=== PATIENT | male | born 1945 | race Caucasian/White ===

== ENCOUNTER 2021-12-17 14:20 | Emergency (ER) | payer OTHER ==
[2021-12-17 14:47] VITALS: TEMP 97.6; BMI 24.0
[2021-12-17] MEDS ORDERED: ACETAMINOPHEN 1000 MG/100 ML BAG IVPB ONE (15:23)
[2021-12-17] MEDS ORDERED: SODIUM CHLORIDE 1,000 ML IV STA (15:23)
[2021-12-17] MEDS ORDERED: LIDOCAINE 5% TOPICAL PATCH ONE (15:24)
[2021-12-17] MEDS ORDERED: LIDOCAINE 5% TOPICAL PATCH TP ONE (15:24)
[2021-12-17] MEDS ORDERED: ACETAMINOPHEN INJECTION 100 ML IVPB ONE (15:35)
[2021-12-17 16:07] LABS: BASO % 0.1 % (0-2.0); EOS % 0.8 % (0-4.5); HEMATOCRIT 37.3 % (35.4-49); HEMOGLOBIN 12.3 GM/dL (11.7-16.9); LYMPH % 28.3 % (8-40); MCHC 32.9 g/dl (32.0-35.9); MEAN PLT VOLUME 7.7 fl (7.5-11.1); MONO % 13.5 % (3.8-10.2); NEUT % 57.3 % (42.8-82.8); PLATELET COUNT 296 10^3/uL (134-434); RBC 4.72 M/mm3 (4.00-5.60); RDW 18.4 % (11.9-15.9); WHITE BLOOD COUNT 7.2 K/mm3 (4.0-10.0)
[2021-12-17 16:17] LABS: EPI CELLS 1 /uL (0-25.1); HYALINE CASTS 0 /uL (0-3.1); PH,URINE 5.5 (5.0-8.0); URINE APPEARANCE CLEAR; URINE BACTERIA 3 /uL (0-1359); URINE BILIRUBIN NEGATIVE (NEGATIVE); URINE COLOR YELLOW; URINE GLUCOSE (UA) NEGATIVE (NEGATIVE); URINE KETONE NEGATIVE (NEGATIVE); URINE LEUK ESTERASE NEGATIVE (NEGATIVE); URINE NITRITE NEGATIVE (NEGATIVE); URINE PROTEIN NEGATIVE (NEGATIVE); URINE RBC 5 /uL (0-23.9); URINE UROBILINOGEN 0.2 mg/dL (0.2-1.0); URINE WBC 0 /uL (0-25.8)
[2021-12-17 16:28] LABS: ALBUMIN 4.1 g/dl (3.4-5.0); CALCIUM 9.8 mg/dL (8.5-10.1)
[2021-12-17 16:29] LABS: BLOOD UREA NITROGEN 16.3 mg/dL (7-18)
[2021-12-17 16:32] LABS: CREATININE 1.1 mg/dL (0.55-1.3)
[2021-12-17 16:33] LABS: BILIRUBIN,TOTAL 0.6 mg/dL (0.2-1); TOT PROT 8.5 g/dl (6.4-8.2)
[2021-12-17] MEDS ORDERED: LIDOCAINE PATCH REMOVAL MC SCH (22:00)
[2021-12-17 22:18] VITALS: BP 128/68; PULSE 62
== END 2021-12-17 22:18 | disposition home or self-care (01) ==
LOC: JER 14:20
PROC: 3E033NZ Introduction of Analgesics, Hypnotics, Sedatives into Peripheral Vein, Percutaneous Approach (ICD-10-PCS; principal; 2021-12-17)
PROC: 3E0337Z Introduction of Electrolytic and Water Balance Substance into Peripheral Vein, Percutaneous Approach (ICD-10-PCS; 2021-12-17)
DX: M54.9 Dorsalgia, unspecified (principal)
CPT/HCPCS: 36415; 74176-TC; 76775-TC; 80053; 81003; 83690; 85025; 87086; 96361; 96374; 99285-25

== ENCOUNTER 2022-04-25 11:12 | Emergency (ER) | payer OTHER ==
[2022-04-25 11:32] VITALS: BMI 24.1
[2022-04-25] MEDS ORDERED: ACETAMINOPHEN 1000 MG/100 ML BAG IVPB ONE (12:48)
[2022-04-25] MEDS ORDERED: SODIUM CHLORIDE 0.9% 500 ML INFUS.BAG IV ONE (12:48)
[2022-04-25] MEDS ORDERED: ACETAMINOPHEN INJECTION 100 ML IVPB ONE (13:18)
[2022-04-25 14:22] LABS: BASO % 0.3 % (0-2.0); HEMATOCRIT 33.7 % (35.4-49); LYMPH % 11.4 % (8-40); MCH 26.5 pg (25.7-33.7); MCHC 32.5 g/dl (32.0-35.9); MEAN CELL VOLUME 81.6 fl (80-96); MEAN PLT VOLUME 8.3 fl (7.5-11.1); MONO % 12.9 % (3.8-10.2); NEUT % 75.4 % (42.8-82.8); PLATELET COUNT 341 10^3/uL (134-434); RBC 4.13 M/mm3 (4.00-5.60); RDW 16.8 % (11.9-15.9); WHITE BLOOD COUNT 14.5 K/mm3 (4.0-10.0)
[2022-04-25 14:36] LABS: ALBUMIN 3.4 g/dl (3.4-5.0); CALCIUM 9.4 mg/dL (8.5-10.1)
[2022-04-25 14:37] LABS: BLOOD UREA NITROGEN 12.9 mg/dL (7-18)
[2022-04-25 14:39] LABS: CREATININE 1.1 mg/dL (0.55-1.3)
[2022-04-25 14:41] LABS: BILIRUBIN,TOTAL 0.7 mg/dL (0.2-1); TOT PROT 7.8 g/dl (6.4-8.2)
[2022-04-25 15:31] LABS: EPI CELLS 4 /uL (0-25.1); HYALINE CASTS 0 /uL (0-3.1); PH,URINE 5.5 (5.0-8.0); URINE APPEARANCE CLEAR; URINE BACTERIA 124 /uL (0-1359); URINE BILIRUBIN NEGATIVE (NEGATIVE); URINE COLOR YELLOW; URINE GLUCOSE (UA) NEGATIVE (NEGATIVE); URINE KETONE NEGATIVE (NEGATIVE); URINE LEUK ESTERASE NEGATIVE (NEGATIVE); URINE NITRITE NEGATIVE (NEGATIVE); URINE PROTEIN 1+ (NEGATIVE); URINE RBC 15 /uL (0-23.9); URINE UROBILINOGEN 0.2 mg/dL (0.2-1.0); URINE WBC 18 /uL (0-25.8)
[2022-04-25] MEDS ORDERED: KETOROLAC TROMETHAMINE 15 MG/ML VIAL IVPUSH ONE (15:45)
[2022-04-25 18:42] VITALS: BP 102/74; PULSE 88; RESP 18; TEMP 100.1
== END 2022-04-25 18:40 | disposition home or self-care (01) ==
LOC: JER 11:12
PROC: 3E033GC Introduction of Other Therapeutic Substance into Peripheral Vein, Percutaneous Approach (ICD-10-PCS; principal; 2022-04-25)
DX: R10.84 Generalized abdominal pain (principal)
CPT/HCPCS: 36415; 74176-TC; 80053; 81003; 83690; 84484; 85025; 87086; 87186; 93005; 93010; 96374; 99285-25

== ENCOUNTER 2023-02-19 07:51 | Inpatient (IN) | payer OTHER ==
[2023-02-19 10:08] LABS: BASO % 0.1 % (0-2.0); EOS % 0.2 % (0-4.5); HEMATOCRIT 36.7 % (35.4-49); MCH 28.7 pg (25.7-33.7); MCHC 32.7 g/dl (32.0-35.9); MEAN CELL VOLUME 87.8 fl (80-96); MEAN PLT VOLUME 7.5 fl (7.5-11.1); MONO % 8.3 % (3.8-10.2); NEUT % 79.4 % (42.8-82.8); PLATELET COUNT 287 10^3/uL (134-434); RBC 4.18 M/mm3 (4.00-5.60); RDW 17.8 % (11.9-15.9); WHITE BLOOD COUNT 9.1 K/mm3 (4.0-10.0)
[2023-02-19 10:19] LABS: INR 1.25 (0.83-1.09); PROTHROMBIN TIME (PATIENT) 14.5 SEC (9.7-13.0)
[2023-02-19 10:21] LABS: ACTIVATED PTT 28.6 SECONDS (25.2-36.5)
[2023-02-19 10:34] LABS: POTASSIUM 4.2 mmol/L (3.5-5.1)
[2023-02-19 10:37] LABS: CALCIUM 9.3 mg/dL (8.5-10.1)
[2023-02-19 10:38] LABS: ALBUMIN 3.5 g/dl (3.4-5.0); BLOOD UREA NITROGEN 14.1 mg/dL (7-18); MAGNESIUM 1.6 mg/dL (1.8-2.4)
[2023-02-19 10:43] LABS: BILIRUBIN,TOTAL 0.9 mg/dL (0.2-1); TOT PROT 7.2 g/dl (6.4-8.2)
[2023-02-19 14:23] LABS: URINE APPEARANCE CLEAR; URINE BILIRUBIN NEGATIVE (NEGATIVE); URINE COLOR YELLOW; URINE GLUCOSE (UA) NEGATIVE (NEGATIVE); URINE KETONE TRACE (NEGATIVE); URINE LEUK ESTERASE NEGATIVE (NEGATIVE); URINE NITRITE NEGATIVE (NEGATIVE); URINE PROTEIN NEGATIVE (NEGATIVE); URINE UROBILINOGEN 0.2 mg/dL (0.2-1.0)
[2023-02-19] MEDS ORDERED: MAGNESIUM SULF 50% (8.12 MEQ/2 ML-1 GM VIAL) IVPB ONE (16:13)
[2023-02-19] MEDS ORDERED: MAGNESIUM 1GM/D5W - 1 GM/100 ML IVPB IVPB ONE (18:08)
[2023-02-19 19:02] LABS: CHOLESTEROL 162 mg/dL (50-200)
[2023-02-19 19:03] LABS: LDL CHOLESTEROL (ONLY SJRH) 95 mg/dL (5-100)
[2023-02-19 19:05] LABS: HDL CHOLESTEROL 57 mg/dL (40-60)
[2023-02-19] MEDS: APIXABAN 5 MG TABLET PO SCH (22:22)
[2023-02-20 08:22] LABS: BASO % 0.2 % (0-2.0); EOS % 0.8 % (0-4.5); HEMATOCRIT 42.5 % (35.4-49); HEMOGLOBIN 13.6 GM/dL (11.7-16.9); LYMPH % 18.7 % (8-40); MCH 28.7 pg (25.7-33.7); MCHC 32.1 g/dl (32.0-35.9); MEAN CELL VOLUME 89.3 fl (80-96); MEAN PLT VOLUME 8.8 fl (7.5-11.1); MONO % 9.6 % (3.8-10.2); NEUT % 70.7 % (42.8-82.8); PLATELET COUNT 250 10^3/uL (134-434); RBC 4.76 M/mm3 (4.00-5.60); RDW 17.7 % (11.9-15.9); WHITE BLOOD COUNT 8.5 K/mm3 (4.0-10.0)
[2023-02-20 08:34] LABS: POTASSIUM 4.2 mmol/L (3.5-5.1)
[2023-02-20 08:44] LABS: ALBUMIN 3.4 g/dl (3.4-5.0); BLOOD UREA NITROGEN 12.7 mg/dL (7-18); MAGNESIUM 1.8 mg/dL (1.8-2.4)
[2023-02-20 08:47] LABS: CREATININE 0.9 mg/dL (0.55-1.3); PHOSPHOROUS 3.5 mg/dL (2.5-4.9)
[2023-02-20 08:49] LABS: BILIRUBIN,TOTAL 1.2 mg/dL (0.2-1); TOT PROT 7.3 g/dl (6.4-8.2)
[2023-02-20] MEDS: APIXABAN 5 MG TABLET PO SCH ×2 (10:41→22:13)
[2023-02-20] MEDS ORDERED: amLODIPine BESYLATE 5 MG TABLET (FP) PO SCH (21:30)
[2023-02-21 08:52] LABS: BASO % 0.2 % (0-2.0); EOS % 0.9 % (0-4.5); HEMATOCRIT 38.3 % (35.4-49); LYMPH % 18.8 % (8-40); MCH 29.5 pg (25.7-33.7); MCHC 33.9 g/dl (32.0-35.9); MEAN CELL VOLUME 87.1 fl (80-96); MEAN PLT VOLUME 8.2 fl (7.5-11.1); MONO % 9.3 % (3.8-10.2); NEUT % 70.8 % (42.8-82.8); PLATELET COUNT 265 10^3/uL (134-434); RDW 17.8 % (11.9-15.9); WHITE BLOOD COUNT 8.2 K/mm3 (4.0-10.0)
[2023-02-21] MEDS: APIXABAN 5 MG TABLET PO SCH ×2 (09:17→21:46)
[2023-02-21 09:36] LABS: ALBUMIN 3.2 g/dl (3.4-5.0); CALCIUM 8.9 mg/dL (8.5-10.1)
[2023-02-21 09:37] LABS: BLOOD UREA NITROGEN 16.5 mg/dL (7-18)
[2023-02-21 09:38] LABS: MAGNESIUM 1.6 mg/dL (1.8-2.4)
[2023-02-21 09:39] LABS: PHOSPHOROUS 3.8 mg/dL (2.5-4.9)
[2023-02-21 09:59] LABS: TOT PROT 6.7 g/dl (6.4-8.2)
[2023-02-21] MEDS ORDERED: levETIRAcetam 500 MG/5 ML INJECTION VIAL IVPB ONE (11:26)
[2023-02-21] MEDS ORDERED: METOPROLOL TARTRATE 5 MG/5 ML VIAL ONE (12:46)
[2023-02-21] MEDS ORDERED: METOPROLOL TARTRATE 5 MG/5 ML VIAL IVPUSH ONE ×2 (12:53→18:37)
[2023-02-21] MEDS ORDERED: MAGNESIUM SULF 50% (8.12 MEQ/2 ML-1 GM VIAL) IVPB ONE (13:22)
[2023-02-21] MEDS ORDERED: SODIUM CHLORIDE 1,000 ML IV STA (13:35)
[2023-02-21 17:10] LABS: POTASSIUM 3.6 mmol/L (3.5-5.1)
[2023-02-21 17:12] LABS: ALBUMIN 3.2 g/dl (3.4-5.0); CALCIUM 8.7 mg/dL (8.5-10.1)
[2023-02-21 17:13] LABS: BLOOD UREA NITROGEN 15.5 mg/dL (7-18)
[2023-02-21 17:15] LABS: CREATININE 1.2 mg/dL (0.55-1.3)
[2023-02-21] MEDS: MUPIROCIN 2% TOPICAL OINTMENT FOR DECOLONIZATION NS SCH ×2 (17:15→22:30)
[2023-02-21 17:17] LABS: TOT PROT 6.6 g/dl (6.4-8.2)
[2023-02-21 17:23] LABS: BILIRUBIN,TOTAL 0.9 mg/dL (0.2-1); LACTIC ACID 2.3 mmol/L (0.4-2.0)
[2023-02-21] MEDS ORDERED: METOPROLOL TARTRATE 5 MG/5 ML VIAL IVPUSH PRN ×2 (18:45→18:59)
[2023-02-21] MEDS ORDERED: LORazepam 2 MG/ML SDV VIAL IVPUSH PRN (19:15)
[2023-02-21] MEDS: levETIRAcetam 500 MG/5 ML INJECTION VIAL IVPB SCH (21:45)
[2023-02-21] MEDS ORDERED: CHLORHEXIDINE GLUCONATE 4% CLEANSER FOR DECOLONIZATION TP SCH (22:00)
[2023-02-22 07:37] LABS: BASO % 0.2 % (0-2.0); EOS % 0.3 % (0-4.5); HEMATOCRIT 38.9 % (35.4-49); HEMOGLOBIN 12.5 GM/dL (11.7-16.9); LYMPH % 12.8 % (8-40); MCH 28.7 pg (25.7-33.7); MCHC 32.2 g/dl (32.0-35.9); MEAN PLT VOLUME 8.3 fl (7.5-11.1); MONO % 8.9 % (3.8-10.2); NEUT % 77.8 % (42.8-82.8); PLATELET COUNT 306 10^3/uL (134-434); RBC 4.37 M/mm3 (4.00-5.60); RDW 17.4 % (11.9-15.9); WHITE BLOOD COUNT 10.5 K/mm3 (4.0-10.0)
[2023-02-22 07:57] LABS: POTASSIUM 4.1 mmol/L (3.5-5.1)
[2023-02-22 08:00] LABS: CALCIUM 9.1 mg/dL (8.5-10.1)
[2023-02-22 08:01] LABS: ALBUMIN 3.5 g/dl (3.4-5.0); BLOOD UREA NITROGEN 13.8 mg/dL (7-18); MAGNESIUM 2.2 mg/dL (1.8-2.4)
[2023-02-22 08:04] LABS: PHOSPHOROUS 3.7 mg/dL (2.5-4.9)
[2023-02-22 08:05] LABS: TOT PROT 7.3 g/dl (6.4-8.2)
[2023-02-22] MEDS: levETIRAcetam 500 MG/5 ML INJECTION VIAL IVPB SCH ×2 (09:28→21:02)
[2023-02-22] MEDS: APIXABAN 5 MG TABLET PO SCH ×2 (09:30→21:02)
[2023-02-22] MEDS ORDERED: metoPROLOL SUCCINATE 25 MG TAB.SR.24H (FP) PO SCH ×2 (10:00→10:05)
[2023-02-22] MEDS ORDERED: METOPROLOL TARTRATE 5 MG/5 ML VIAL IVPUSH PRN (12:11)
[2023-02-22] MEDS: MUPIROCIN 2% TOPICAL OINTMENT FOR DECOLONIZATION NS SCH (13:09)
[2023-02-22] MEDS: LORazepam 2 MG/ML SDV VIAL IVPUSH PRN (23:44)
[2023-02-23 08:49] LABS: BASO % 0.2 % (0-2.0); EOS % 0.6 % (0-4.5); HEMATOCRIT 41.3 % (35.4-49); HEMOGLOBIN 13.1 GM/dL (11.7-16.9); LYMPH % 15.1 % (8-40); MCH 28.5 pg (25.7-33.7); MCHC 31.6 g/dl (32.0-35.9); MEAN CELL VOLUME 90.2 fl (80-96); MEAN PLT VOLUME 8.9 fl (7.5-11.1); MONO % 9.1 % (3.8-10.2); PLATELET COUNT 260 10^3/uL (134-434); RBC 4.58 M/mm3 (4.00-5.60); WHITE BLOOD COUNT 9.5 K/mm3 (4.0-10.0)
[2023-02-23 09:01] LABS: POTASSIUM 3.9 mmol/L (3.5-5.1)
[2023-02-23 09:03] LABS: CALCIUM 9.4 mg/dL (8.5-10.1)
[2023-02-23 09:05] LABS: ALBUMIN 3.4 g/dl (3.4-5.0); BLOOD UREA NITROGEN 16.7 mg/dL (7-18)
[2023-02-23 09:08] LABS: BILIRUBIN,TOTAL 0.6 mg/dL (0.2-1); PHOSPHOROUS 3.8 mg/dL (2.5-4.9); TOT PROT 7.3 g/dl (6.4-8.2)
[2023-02-23] MEDS: levETIRAcetam 500 MG/5 ML INJECTION VIAL IVPB SCH ×2 (11:07→22:12)
[2023-02-23] MEDS: metoPROLOL SUCCINATE 25 MG TAB.SR.24H (FP) PO SCH (11:07)
[2023-02-23] MEDS: APIXABAN 5 MG TABLET PO SCH ×2 (11:08→22:13)
[2023-02-23] MEDS: D5-1/2NS+10 MEQ KCL - 10 MEQ/1,000 ML INFUS.BAG IV SCH (20:01)
[2023-02-23] MEDS: LORazepam 2 MG/ML SDV VIAL IVPUSH PRN (22:11)
[2023-02-24] MEDS: QUEtiapine FUMARATE 25 MG TABLET PO SCH ×2 (06:40→22:18)
[2023-02-24 07:50] LABS: BASO % 0.2 % (0-2.0); EOS % 1.6 % (0-4.5); HEMATOCRIT 37.6 % (35.4-49); HEMOGLOBIN 12.1 GM/dL (11.7-16.9); LYMPH % 18.9 % (8-40); MCH 28.6 pg (25.7-33.7); MCHC 32.3 g/dl (32.0-35.9); MEAN CELL VOLUME 88.6 fl (80-96); MEAN PLT VOLUME 8.6 fl (7.5-11.1); MONO % 12.2 % (3.8-10.2); NEUT % 67.1 % (42.8-82.8); PLATELET COUNT 304 10^3/uL (134-434); RBC 4.24 M/mm3 (4.00-5.60); RDW 17.7 % (11.9-15.9); WHITE BLOOD COUNT 8.2 K/mm3 (4.0-10.0)
[2023-02-24 08:12] LABS: ALBUMIN 3.1 g/dl (3.4-5.0); BLOOD UREA NITROGEN 13.7 mg/dL (7-18); MAGNESIUM 1.6 mg/dL (1.8-2.4)
[2023-02-24 08:15] LABS: CREATININE 0.9 mg/dL (0.55-1.3); PHOSPHOROUS 3.7 mg/dL (2.5-4.9)
[2023-02-24 08:16] LABS: BILIRUBIN,TOTAL 0.7 mg/dL (0.2-1); TOT PROT 6.6 g/dl (6.4-8.2)
[2023-02-24] MEDS ORDERED: MAGNESIUM SULF 50% (8.12 MEQ/2 ML-1 GM VIAL) IVPB ONE (10:30)
[2023-02-24] MEDS: levETIRAcetam 500 MG/5 ML INJECTION VIAL IVPB SCH ×2 (10:36→22:19)
[2023-02-24] MEDS: APIXABAN 5 MG TABLET PO SCH ×2 (10:37→22:18)
[2023-02-24] MEDS: metoPROLOL SUCCINATE 25 MG TAB.SR.24H (FP) PO SCH (10:37)
[2023-02-24] MEDS: D5-1/2NS+10 MEQ KCL - 10 MEQ/1,000 ML INFUS.BAG IV SCH (10:38)
[2023-02-24 11:01] LABS: EPI CELLS 6 /uL (0-25.1); HYALINE CASTS 2 /uL (0-3.1); PH,URINE 5.5 (5.0-8.0); URINE APPEARANCE CLOUDY; URINE BACTERIA 7251 /uL (0-1359); URINE BILIRUBIN NEGATIVE (NEGATIVE); URINE COLOR YELLOW; URINE GLUCOSE (UA) NEGATIVE (NEGATIVE); URINE KETONE TRACE (NEGATIVE); URINE LEUK ESTERASE NEGATIVE (NEGATIVE); URINE NITRITE POSITIVE (NEGATIVE); URINE PROTEIN NEGATIVE (NEGATIVE); URINE RBC 14 /uL (0-23.9); URINE UROBILINOGEN 0.2 mg/dL (0.2-1.0); URINE WBC 9 /uL (0-25.8)
[2023-02-24] MEDS: SODIUM CHLORIDE 1,000 ML IV SCH ×2 (13:03→13:30)
[2023-02-24] MEDS: CEFTRIAXONE 1 GM in DEXTROSE 5%-WATER - 50 ML IVPB SCH (13:16)
[2023-02-25 09:11] LABS: BASO % 0.3 % (0-2.0); EOS % 1.4 % (0-4.5); HEMATOCRIT 36.3 % (35.4-49); HEMOGLOBIN 11.9 GM/dL (11.7-16.9); LYMPH % 18.7 % (8-40); MCH 29.1 pg (25.7-33.7); MCHC 32.7 g/dl (32.0-35.9); MONO % 10.7 % (3.8-10.2); NEUT % 68.9 % (42.8-82.8); PLATELET COUNT 301 10^3/uL (134-434); RBC 4.08 M/mm3 (4.00-5.60); RDW 17.5 % (11.9-15.9); WHITE BLOOD COUNT 8.7 K/mm3 (4.0-10.0)
[2023-02-25 09:24] LABS: POTASSIUM 4.2 mmol/L (3.5-5.1)
[2023-02-25] MEDS: APIXABAN 5 MG TABLET PO SCH ×2 (09:38→21:36)
[2023-02-25] MEDS: metoPROLOL SUCCINATE 25 MG TAB.SR.24H (FP) PO SCH (09:38)
[2023-02-25] MEDS: levETIRAcetam 500 MG/5 ML INJECTION VIAL IVPB SCH ×2 (09:39→21:36)
[2023-02-25] MEDS: CEFTRIAXONE 1 GM in DEXTROSE 5%-WATER - 50 ML IVPB SCH (09:39)
[2023-02-25 09:51] LABS: PHOSPHOROUS 3.2 mg/dL (2.5-4.9)
[2023-02-25 09:52] LABS: BILIRUBIN,TOTAL 0.6 mg/dL (0.2-1); CREATININE 0.9 mg/dL (0.55-1.3); TOT PROT 6.6 g/dl (6.4-8.2)
[2023-02-25 09:56] LABS: BLOOD UREA NITROGEN 12.7 mg/dL (7-18); CALCIUM 9.1 mg/dL (8.5-10.1)
[2023-02-25 10:00] LABS: MAGNESIUM 1.6 mg/dL (1.8-2.4)
[2023-02-25] MEDS: SODIUM CHLORIDE 1,000 ML IV SCH (19:05)
[2023-02-25] MEDS: QUEtiapine FUMARATE 25 MG TABLET PO SCH (21:36)
[2023-02-26 08:20] LABS: BASO % 0.3 % (0-2.0); EOS % 1.2 % (0-4.5); HEMATOCRIT 37.1 % (35.4-49); HEMOGLOBIN 12.5 GM/dL (11.7-16.9); LYMPH % 16.2 % (8-40); MCH 29.1 pg (25.7-33.7); MCHC 33.6 g/dl (32.0-35.9); MEAN CELL VOLUME 86.6 fl (80-96); MEAN PLT VOLUME 7.7 fl (7.5-11.1); MONO % 9.9 % (3.8-10.2); NEUT % 72.4 % (42.8-82.8); PLATELET COUNT 305 10^3/uL (134-434); RBC 4.28 M/mm3 (4.00-5.60); RDW 17.4 % (11.9-15.9); WHITE BLOOD COUNT 8.4 K/mm3 (4.0-10.0)
[2023-02-26 08:34] LABS: POTASSIUM 4.3 mmol/L (3.5-5.1)
[2023-02-26 08:42] LABS: CALCIUM 9.3 mg/dL (8.5-10.1); MAGNESIUM 1.5 mg/dL (1.8-2.4)
[2023-02-26 08:44] LABS: BLOOD UREA NITROGEN 10.8 mg/dL (7-18)
[2023-02-26 08:45] LABS: CREATININE 0.8 mg/dL (0.55-1.3); PHOSPHOROUS 3.2 mg/dL (2.5-4.9)
[2023-02-26 08:47] LABS: BILIRUBIN,TOTAL 0.6 mg/dL (0.2-1); TOT PROT 6.6 g/dl (6.4-8.2)
[2023-02-26] MEDS ORDERED: MAGNESIUM SULF 50% (8.12 MEQ/2 ML-1 GM VIAL) IVPB ONE (09:21)
[2023-02-26] MEDS: metoPROLOL SUCCINATE 25 MG TAB.SR.24H (FP) PO SCH (10:27)
[2023-02-26] MEDS: levETIRAcetam 500 MG/5 ML INJECTION VIAL IVPB SCH ×2 (10:28→21:43)
[2023-02-26] MEDS: APIXABAN 5 MG TABLET PO SCH ×2 (10:28→21:54)
[2023-02-26] MEDS: CEFTRIAXONE 1 GM in DEXTROSE 5%-WATER - 50 ML IVPB SCH (10:55)
[2023-02-26 11:38] VITALS: BMI 21.6
[2023-02-26] MEDS: MULTIVITAMINS (DAILY MVI) TABLET (FP) PO SCH (14:18)
[2023-02-26] MEDS: QUEtiapine FUMARATE 25 MG TABLET PO SCH (21:54)
[2023-02-27 08:47] LABS: BASO % 0.2 % (0-2.0); EOS % 2.3 % (0-4.5); HEMATOCRIT 39.1 % (35.4-49); HEMOGLOBIN 12.3 GM/dL (11.7-16.9); LYMPH % 20.6 % (8-40); MCHC 31.3 g/dl (32.0-35.9); MEAN CELL VOLUME 89.4 fl (80-96); MEAN PLT VOLUME 8.8 fl (7.5-11.1); MONO % 12.3 % (3.8-10.2); NEUT % 64.6 % (42.8-82.8); PLATELET COUNT 311 10^3/uL (134-434); RBC 4.37 M/mm3 (4.00-5.60); RDW 17.8 % (11.9-15.9); WHITE BLOOD COUNT 7.5 K/mm3 (4.0-10.0)
[2023-02-27 08:56] LABS: POTASSIUM 4.6 mmol/L (3.5-5.1)
[2023-02-27 08:59] LABS: CALCIUM 9.5 mg/dL (8.5-10.1); MAGNESIUM 2.1 mg/dL (1.8-2.4)
[2023-02-27 09:00] LABS: ALBUMIN 3.1 g/dl (3.4-5.0)
[2023-02-27 09:02] LABS: BLOOD UREA NITROGEN 11.9 mg/dL (7-18); PHOSPHOROUS 3.8 mg/dL (2.5-4.9)
[2023-02-27 09:03] LABS: BILIRUBIN,TOTAL 0.7 mg/dL (0.2-1); TOT PROT 6.8 g/dl (6.4-8.2)
[2023-02-27] MEDS: MULTIVITAMINS (DAILY MVI) TABLET (FP) PO SCH (09:45)
[2023-02-27] MEDS: APIXABAN 5 MG TABLET PO SCH ×2 (09:45→22:22)
[2023-02-27] MEDS: levETIRAcetam 500 MG/5 ML INJECTION VIAL IVPB SCH ×2 (09:45→22:09)
[2023-02-27] MEDS: metoPROLOL SUCCINATE 25 MG TAB.SR.24H (FP) PO SCH (09:45)
[2023-02-27] MEDS: CEFTRIAXONE 1 GM in DEXTROSE 5%-WATER - 50 ML IVPB SCH (09:46)
[2023-02-27] MEDS: ATORVASTATIN CA 20 MG TABLET (FP) PO SCH (22:21)
[2023-02-27] MEDS: QUEtiapine FUMARATE 25 MG TABLET PO SCH (22:22)
[2023-02-28 07:58] LABS: BASO % 0.5 % (0-2.0); HEMATOCRIT 38.6 % (35.4-49); HEMOGLOBIN 12.6 GM/dL (11.7-16.9); LYMPH % 25.5 % (8-40); MCH 28.9 pg (25.7-33.7); MCHC 32.5 g/dl (32.0-35.9); MEAN CELL VOLUME 88.8 fl (80-96); MEAN PLT VOLUME 8.3 fl (7.5-11.1); MONO % 13.1 % (3.8-10.2); NEUT % 58.9 % (42.8-82.8); PLATELET COUNT 311 10^3/uL (134-434); RBC 4.35 M/mm3 (4.00-5.60); RDW 17.4 % (11.9-15.9); WHITE BLOOD COUNT 7.3 K/mm3 (4.0-10.0)
[2023-02-28 08:18] LABS: POTASSIUM 4.9 mmol/L (3.5-5.1)
[2023-02-28 08:23] LABS: ALBUMIN 3.1 g/dl (3.4-5.0); BLOOD UREA NITROGEN 14.4 mg/dL (7-18); CALCIUM 9.7 mg/dL (8.5-10.1); MAGNESIUM 1.9 mg/dL (1.8-2.4)
[2023-02-28 08:26] LABS: PHOSPHOROUS 3.9 mg/dL (2.5-4.9)
[2023-02-28 08:28] LABS: BILIRUBIN,TOTAL 0.6 mg/dL (0.2-1); TOT PROT 6.7 g/dl (6.4-8.2)
[2023-02-28] MEDS: metoPROLOL SUCCINATE 25 MG TAB.SR.24H (FP) PO SCH (10:30)
[2023-02-28] MEDS: APIXABAN 5 MG TABLET PO SCH ×2 (10:30→22:25)
[2023-02-28] MEDS: CEFTRIAXONE 1 GM in DEXTROSE 5%-WATER - 50 ML IVPB SCH (10:30)
[2023-02-28] MEDS: levETIRAcetam 500 MG/5 ML INJECTION VIAL IVPB SCH (10:30)
[2023-02-28] MEDS: MULTIVITAMINS (DAILY MVI) TABLET (FP) PO SCH (10:30)
[2023-02-28] MEDS: levETIRAcetam 250 MG TABLET PO SCH (22:25)
[2023-02-28] MEDS: ATORVASTATIN CA 20 MG TABLET (FP) PO SCH (22:25)
[2023-02-28] MEDS: QUEtiapine FUMARATE 25 MG TABLET PO SCH (22:26)
[2023-03-01 07:44] LABS: BASO % 0.3 % (0-2.0); EOS % 0.9 % (0-4.5); HEMATOCRIT 40.1 % (35.4-49); LYMPH % 18.7 % (8-40); MCH 28.8 pg (25.7-33.7); MCHC 32.4 g/dl (32.0-35.9); MEAN CELL VOLUME 88.9 fl (80-96); MONO % 9.6 % (3.8-10.2); NEUT % 70.5 % (42.8-82.8); PLATELET COUNT 357 10^3/uL (134-434); RBC 4.51 M/mm3 (4.00-5.60); WHITE BLOOD COUNT 7.9 K/mm3 (4.0-10.0)
[2023-03-01 08:33] LABS: POTASSIUM 4.8 mmol/L (3.5-5.1)
[2023-03-01 08:36] LABS: ALBUMIN 3.4 g/dl (3.4-5.0); CALCIUM 9.4 mg/dL (8.5-10.1); MAGNESIUM 1.7 mg/dL (1.8-2.4)
[2023-03-01 08:37] LABS: BLOOD UREA NITROGEN 20.1 mg/dL (7-18)
[2023-03-01 08:39] LABS: CREATININE 1.1 mg/dL (0.55-1.3)
[2023-03-01 08:40] LABS: PHOSPHOROUS 3.7 mg/dL (2.5-4.9)
[2023-03-01 08:41] LABS: BILIRUBIN,TOTAL 0.8 mg/dL (0.2-1); TOT PROT 7.3 g/dl (6.4-8.2)
[2023-03-01] MEDS ORDERED: MAGNESIUM SULF 50% (8.12 MEQ/2 ML-1 GM VIAL) IVPB ONE (09:08)
[2023-03-01] MEDS: APIXABAN 5 MG TABLET PO SCH ×2 (09:37→22:28)
[2023-03-01] MEDS: MULTIVITAMINS (DAILY MVI) TABLET (FP) PO SCH (09:37)
[2023-03-01] MEDS: metoPROLOL SUCCINATE 25 MG TAB.SR.24H (FP) PO SCH (09:37)
[2023-03-01] MEDS: levETIRAcetam 250 MG TABLET PO SCH ×2 (09:37→22:27)
[2023-03-01] MEDS ORDERED: METOPROLOL TARTRATE 5 MG/5 ML VIAL IVPUSH PRN (17:17)
[2023-03-01] MEDS ORDERED: ATORVASTATIN CA 20 MG TABLET (FP) PO SCH (22:00)
[2023-03-01] MEDS: QUEtiapine FUMARATE 25 MG TABLET PO SCH (22:28)
[2023-03-02 09:15] LABS: BASO % 0.3 % (0-2.0); EOS % 1.6 % (0-4.5); HEMATOCRIT 42.4 % (35.4-49); HEMOGLOBIN 13.9 GM/dL (11.7-16.9); MCH 28.9 pg (25.7-33.7); MCHC 32.8 g/dl (32.0-35.9); MEAN CELL VOLUME 88.2 fl (80-96); MEAN PLT VOLUME 7.7 fl (7.5-11.1); MONO % 13.4 % (3.8-10.2); NEUT % 58.7 % (42.8-82.8); PLATELET COUNT 349 10^3/uL (134-434); RBC 4.81 M/mm3 (4.00-5.60); RDW 17.4 % (11.9-15.9); WHITE BLOOD COUNT 7.6 K/mm3 (4.0-10.0)
[2023-03-02 09:26] LABS: POTASSIUM 5.1 mmol/L (3.5-5.1)
[2023-03-02 09:32] LABS: ALBUMIN 3.5 g/dl (3.4-5.0); BLOOD UREA NITROGEN 21.3 mg/dL (7-18); CALCIUM 9.3 mg/dL (8.5-10.1); MAGNESIUM 2.1 mg/dL (1.8-2.4)
[2023-03-02 09:35] LABS: CREATININE 1.1 mg/dL (0.55-1.3); PHOSPHOROUS 3.7 mg/dL (2.5-4.9)
[2023-03-02 09:37] LABS: BILIRUBIN,TOTAL 0.8 mg/dL (0.2-1); TOT PROT 7.6 g/dl (6.4-8.2)
[2023-03-02] MEDS: levETIRAcetam 250 MG TABLET PO SCH ×2 (11:29→22:11)
[2023-03-02] MEDS: APIXABAN 5 MG TABLET PO SCH ×2 (11:29→22:11)
[2023-03-02] MEDS: metoPROLOL SUCCINATE 25 MG TAB.SR.24H (FP) PO SCH (11:30)
[2023-03-02] MEDS: MULTIVITAMINS (DAILY MVI) TABLET (FP) PO SCH (11:30)
[2023-03-02] MEDS: ASPIRIN 81 MG CHEWABLE TABLETS PO SCH ×2 (15:08→15:49)
[2023-03-02] MEDS: QUEtiapine FUMARATE 25 MG TABLET PO SCH (22:11)
[2023-03-02] MEDS: ATORVASTATIN CA 40 MG TABLET (FP) PO SCH (22:11)
[2023-03-03] MEDS: ASPIRIN 81 MG CHEWABLE TABLETS PO SCH (09:36)
[2023-03-03] MEDS: MULTIVITAMINS (DAILY MVI) TABLET (FP) PO SCH (09:36)
[2023-03-03] MEDS: APIXABAN 5 MG TABLET PO SCH ×2 (09:37→22:00)
[2023-03-03] MEDS: levETIRAcetam 250 MG TABLET PO SCH ×2 (09:37→21:53)
[2023-03-03] MEDS: metoPROLOL SUCCINATE 25 MG TAB.SR.24H (FP) PO SCH (09:41)
[2023-03-03 09:47] LABS: HEMATOCRIT 39.7 % (35.4-49); HEMOGLOBIN 13.1 GM/dL (11.7-16.9); MCH 28.8 pg (25.7-33.7); MCHC 32.9 g/dl (32.0-35.9); MEAN CELL VOLUME 87.6 fl (80-96); MEAN PLT VOLUME 8.4 fl (7.5-11.1); PLATELET COUNT 360 10^3/uL (134-434); RBC 4.53 M/mm3 (4.00-5.60); RDW 16.8 % (11.9-15.9); WHITE BLOOD COUNT 7.7 K/mm3 (4.0-10.0)
[2023-03-03 10:03] LABS: POTASSIUM 5.1 mmol/L (3.5-5.1)
[2023-03-03 10:05] LABS: CALCIUM 9.6 mg/dL (8.5-10.1)
[2023-03-03 10:06] LABS: BLOOD UREA NITROGEN 23.5 mg/dL (7-18)
[2023-03-03 10:09] LABS: CREATININE 1.2 mg/dL (0.55-1.3)
[2023-03-03] MEDS: QUEtiapine FUMARATE 25 MG TABLET PO SCH (21:53)
[2023-03-03] MEDS: ATORVASTATIN CA 40 MG TABLET (FP) PO SCH (21:53)
[2023-03-04] MEDS: levETIRAcetam 250 MG TABLET PO SCH (09:03)
[2023-03-04] MEDS: metoPROLOL SUCCINATE 25 MG TAB.SR.24H (FP) PO SCH ×2 (09:04→16:10)
[2023-03-04] MEDS: APIXABAN 5 MG TABLET PO SCH (09:04)
[2023-03-04] MEDS: ASPIRIN 81 MG CHEWABLE TABLETS PO SCH (09:04)
[2023-03-04] MEDS: MULTIVITAMINS (DAILY MVI) TABLET (FP) PO SCH (09:04)
[2023-03-05] MEDS: levETIRAcetam 250 MG TABLET PO SCH ×2 (00:42→10:57)
[2023-03-05] MEDS: APIXABAN 5 MG TABLET PO SCH ×2 (00:44→10:58)
[2023-03-05] MEDS: ATORVASTATIN CA 40 MG TABLET (FP) PO SCH (00:44)
[2023-03-05] MEDS: QUEtiapine FUMARATE 25 MG TABLET PO SCH (00:44)
[2023-03-05] MEDS: ASPIRIN 81 MG CHEWABLE TABLETS PO SCH (10:57)
[2023-03-05] MEDS: metoPROLOL SUCCINATE 25 MG TAB.SR.24H (FP) PO SCH (10:57)
[2023-03-05] MEDS: MULTIVITAMINS (DAILY MVI) TABLET (FP) PO SCH ×2 (10:57→11:49)
[2023-03-06] MEDS: ATORVASTATIN CA 40 MG TABLET (FP) PO SCH ×2 (01:12→22:17)
[2023-03-06] MEDS: APIXABAN 5 MG TABLET PO SCH ×3 (01:12→22:17)
[2023-03-06] MEDS: QUEtiapine FUMARATE 25 MG TABLET PO SCH ×2 (01:12→22:17)
[2023-03-06] MEDS: levETIRAcetam 250 MG TABLET PO SCH ×3 (01:12→22:17)
[2023-03-06 10:24] LABS: HEMATOCRIT 43.3 % (35.4-49); HEMOGLOBIN 14.4 GM/dL (11.7-16.9); MCH 28.8 pg (25.7-33.7); MCHC 33.2 g/dl (32.0-35.9); MEAN CELL VOLUME 86.8 fl (80-96); MEAN PLT VOLUME 7.9 fl (7.5-11.1); PLATELET COUNT 322 10^3/uL (134-434); RBC 4.99 M/mm3 (4.00-5.60); RDW 17.2 % (11.9-15.9)
[2023-03-06] MEDS: metoPROLOL SUCCINATE 25 MG TAB.SR.24H (FP) PO SCH (10:25)
[2023-03-06] MEDS: MULTIVITAMINS (DAILY MVI) TABLET (FP) PO SCH (10:25)
[2023-03-06] MEDS: ASPIRIN 81 MG CHEWABLE TABLETS PO SCH (10:25)
[2023-03-06 10:54] LABS: POTASSIUM 4.6 mmol/L (3.5-5.1)
[2023-03-06 11:08] LABS: ALBUMIN 3.9 g/dl (3.4-5.0); BLOOD UREA NITROGEN 28.7 mg/dL (7-18); CALCIUM 9.5 mg/dL (8.5-10.1)
[2023-03-06 11:11] LABS: CREATININE 1.3 mg/dL (0.55-1.3)
[2023-03-06 11:13] LABS: BILIRUBIN,TOTAL 0.9 mg/dL (0.2-1); TOT PROT 8.2 g/dl (6.4-8.2)
[2023-03-06] MEDS ORDERED: SODIUM CHLORIDE 1,000 ML IV SCH (14:00)
[2023-03-07] MEDS: MULTIVITAMINS (DAILY MVI) TABLET (FP) PO SCH (11:36)
[2023-03-07] MEDS: ASPIRIN 81 MG CHEWABLE TABLETS PO SCH (11:36)
[2023-03-07] MEDS: levETIRAcetam 250 MG TABLET PO SCH ×2 (11:36→22:15)
[2023-03-07] MEDS: metoPROLOL SUCCINATE 25 MG TAB.SR.24H (FP) PO SCH (11:36)
[2023-03-07] MEDS: APIXABAN 5 MG TABLET PO SCH ×2 (11:37→22:15)
[2023-03-07] MEDS: ATORVASTATIN CA 40 MG TABLET (FP) PO SCH (22:16)
[2023-03-07] MEDS: QUEtiapine FUMARATE 25 MG TABLET PO SCH (22:16)
[2023-03-08] MEDS: ASPIRIN 81 MG CHEWABLE TABLETS PO SCH (10:44)
[2023-03-08] MEDS: metoPROLOL SUCCINATE 25 MG TAB.SR.24H (FP) PO SCH (10:44)
[2023-03-08] MEDS: levETIRAcetam 250 MG TABLET PO SCH ×2 (10:44→22:30)
[2023-03-08] MEDS: APIXABAN 5 MG TABLET PO SCH ×2 (10:44→22:30)
[2023-03-08] MEDS: MULTIVITAMINS (DAILY MVI) TABLET (FP) PO SCH (10:44)
[2023-03-08] MEDS: QUEtiapine FUMARATE 25 MG TABLET PO SCH (22:27)
[2023-03-08] MEDS: ATORVASTATIN CA 40 MG TABLET (FP) PO SCH (22:30)
[2023-03-09] MEDS: metoPROLOL SUCCINATE 25 MG TAB.SR.24H (FP) PO SCH (09:35)
[2023-03-09] MEDS: MULTIVITAMINS (DAILY MVI) TABLET (FP) PO SCH (09:35)
[2023-03-09] MEDS: levETIRAcetam 250 MG TABLET PO SCH (09:35)
[2023-03-09] MEDS: ASPIRIN 81 MG CHEWABLE TABLETS PO SCH (09:35)
[2023-03-09] MEDS: APIXABAN 5 MG TABLET PO SCH (09:35)
[2023-03-09 13:53] VITALS: PULSE 62; RESP 16; TEMP 98
[2023-03-09 19:23] VITALS: BP 125/84
== END 2023-03-09 19:27 | DRG 45 ==
LOC: JER 07:51 → JERBED 14:25 → INTOOBSV 14:25 → UNDOADMOB 14:25 → JERBED 15:30 → J4W 20:49 → JERBED 20:49 → OBSVTOIN 02-21 08:58 → JICU 02-21 12:39 → J4W 02-22 21:43 → J5S 03-01 16:58
PROVIDERS: ADMIT Internal Medicine
DX: I63.89 Other cerebral infarction (principal); I10 Essential (primary) hypertension; E78.5 Hyperlipidemia, unspecified; I48.0 Paroxysmal atrial fibrillation; G93.89 Other specified disorders of brain; I25.10 Atherosclerotic heart disease of native coronary artery without angina pectoris; R55 Syncope and collapse; M54.9 Dorsalgia, unspecified; I69.392 Facial weakness following cerebral infarction; I69.354 Hemiplegia and hemiparesis following cerebral infarction affecting left non-dominant side; F03.90 Unspecified dementia, unspecified severity, without behavioral disturbance, psychotic disturbance, mood disturbance, and anxiety; G40.909 Epilepsy, unspecified, not intractable, without status epilepticus; R41.82 Altered mental status, unspecified; Z95.0 Presence of cardiac pacemaker
CPT/HCPCS: 0241U-QW; 36415; 70450-TC; 70496-TC; 71045-TC-FY; 80048; 80053; 80061; 81003; 82550; 82553; 82962; 83605; 83735; 84100; 84436; 84443; 84484; 85025; 85027; 85610; 85730; 87086; 87635; 93005; 93010; 93306-TC; 93880-TC; 95816; 97116-GP; 97161-GP; 99285-25; G0378